=== PATIENT | female | born 1945 | race Caucasian/White ===

== ENCOUNTER 2017-02-05 00:41 | Emergency (ER) | payer BC ==
--- NOTE | 2017-02-05 00:45 | PDOC ---
History of Present Illness - General Chief Complaint: Irregular Heart Beat Stated Complaint: COUGH/MALAISE Time Seen by Provider: 02/05/17 00:43 - History of Present Illness Initial Comments: This 71-year-old woman with a history of GERD and hyperlipidemia presents with 3 week history of generally nonproductive cough. Patient states that she initially had an "ear infection" and sore throat followed by the cough. Her ear symptoms resolved but sore throat and cough continued. Patient was seen by her PMD, Dr. Díaz); because of her long history of GERD and normal lung exam , he suggested that she double her daily dose of Prilosec. When she did this., the sore throat resolved with cough continuing. Follow-up appointment with Dr. Díaz was yesterday. Her lungs were clear and patient was given prescription for Tessalon Perles. Tonight, she continues to have nonproductive cough and presents here. She has had no fever/chills/shortness of breath/ wheezing. No previous history of asthma or other chronic respiratory illness. 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 Formulary)] 1 tab PO DAILY 11/18/14 [place]-3 Fatty Acids/Fish Oil [Fish Oil 1,000 mg Softgel] 2,000 each PO WEEKLY Omeprazole Magnesium [Prilosec (OTC)] 20 mg PO DAILY 11/18/14 Ubidecarenone [Co Q-10] 200 mg PO DAILY 11/18/14 Benzonatate 100 mg PO TID 02/05/17 Pantoprazole Sodium [Protonix -] 40 mg PO DAILY #30 tablet.ec 02/05/17 Anemia: No Asthma: No Cancer: No Cardiac Disorders: No CVA: No COPD: No CHF: No Dementia: No Diabetes: No GI Disorders: Yes (GERD) Disorders: No HTN: No Hypercholesterolemia: Yes Liver Disease: No Seizures: No Thyroid Disease: No - Surgical History Abdominal Surgery: No Appendectomy: No Cardiac Surgery: No Cholecystectomy: No Lung Surgery: No Neurologic Surgery: No Orthopedic Surgery: No - Immunization History Td Vaccination: Yes Immunization Up to Date: Yes - Psycho/Social/Smoking Cessation Hx Suicidal Ideation: No Smoking Status: No Smoking History: Never smoked Have you smoked in the past 12 months: No Number of Cigarettes Smoked Daily: 0 Hx Alcohol Use: Yes (OCC) Drug/Substance Use Hx: No Substance Use Type: Alcohol Hx Substance Use Treatment: No Review of Systems - Review of Systems Able to Perform ROS?: Yes Comments:: 12 point review of systems is negative except for what is noted in the history of present illness *Physical Exam - Physical Exam Comments: GENERAL: Adult female, coughing frequently but in no acute distress; speaking in full HEAD: Normal with no signs of trauma. EYES: PERRLA, EOMI, sclera anicteric, conjunctiva clear. ENT: Ears normal, nares patent, oropharynx clear without exudates. Dry mucous membranes. NECK: Normal range of motion, supple without lymphadenopathy, JVD, or masses. LUNGS: Breath sounds equal, clear to auscultation bilaterally. No wheezes, and no crackles. HEART:Regular rate and rhythm, normal S1 and S2 without murmur, rub or gallop. ABDOMEN:.normal bowel sounds No guarding,tenderness or rebound.No masses No distention. EXTREMITIES: Normal range of motion, no edema. No clubbing or cyanosis. No erythema, or tenderness. NEUROLOGICAL: Cranial nerves II through XII grossly intact. Normal speech. No focal neurological deficits. MUSCULOSKELETAL: Back non-tender to palpation, no CVA tenderness SKIN: Warm, Dry, normal turgor, no rashes or lesions noted. Twelve-lead electrocardiogram is performed and shows normal sinus rhythm at 91 bpm; intervals, axis and waveforms are all normal. No evidence of acute ST or T -wave abnormalities present. ED Treatment Course - LABORATORY CBC & Chemistry Diagram: 02/05/17 00:50 02/05/17 00:50 Medical Decision Making - Medical Decision Making This 71-year-old woman with a history of GERD/HLD, presents with cough for the last 2-3 weeks. She has seen her PMD twice in the last few weeks, most recently yesterday. The Tessalon Perles that were prescribed yesterday has not helped her dry cough. On presentation, her heart rate is 115, per minute but she is afebrile and pulse oximetry is 100% on room air. Although she is coughing, she does not appear to be in respiratory distress. Exam reveals clear lung sounds with good air exchange. No other significant abnormalities found on exam. EKG shows no evidence of ischemia /infarct Because of her age and history of hyperlipidemia, cardiac enzymes as well as CBC /chemistry profile were evaluated. Patient also was given small amount ( approximately 75 mL/an hour of normal saline ) Because of the clear lung exam and 100% pulse oximetry on room air, pneumonia or other structural acute abnormality unlikely. Therefore, chest x-ray deferred. Cardiac enzymes are not elevated and remainder of the laboratory work is essentially normal. In light of patient's long history of GERD, is possible that her cough is related to persistent acid reflux despite taking 40 mg of Prilosec daily. Will change her PPI to Protonix 40 mg daily with first dose given here in the emergency room. The patient should follow up in any case with within the next 2-3 days. She should return to the emergency room immediately if she has any worsening of her cough or development of shortness of breath, wheezing or fever *DC/Admit/Observation/Transfer Diagnosis at time of Disposition: Cough GERD (gastroesophageal reflux disease) Qualifiers: Esophagitis presence: esophagitis presence not specified Qualified Code(s): K21.9 - Gastro-esophageal reflux disease without esophagitis - Discharge Dispostion Disposition: HOME Condition at time of disposition: Stable - Prescriptions Prescriptions: Pantoprazole Sodium [Protonix -] 40 mg PO DAILY #30 tablet.ec - Referrals Referrals: Luis Díaz MD [Primary Care Provider] - 3 days - Patient Instructions Printed Discharge Instructions: DI for Gastroesophageal Reflux Disease (GERD) Additional Instructions: Stop Prilosec Protonix 40 mg daily Continue all other medications as prescribed Drink plenty of water Return if you have severe cough or develop fever/shortness of breath Follow-up with Dr. Díaz within 2-3 days
[2017-02-05 00:55] VITALS: BP 167/98; PULSE 115; TEMP 98.4; BMI 25.7
[2017-02-05 01:14] LABS: BASOPHIL 1.3 % (0-2.0); EOSINOPHIL 2.2 % (0-4.5); MCH 30.5 pg (25.7-33.7); MCHC 34.3 g/dl (32.0-36.0); MEAN CELL VOLUME 89.1 fl (80-96); MEAN PLT VOLUME 8.6 fl (7.5-11.1); NEUTROPHILS 51.4 % (42.8-82.8); PLATELET COUNT 238 K/MM3 (134-434); RDW 13.1 % (11.6-15.6); WHITE BLOOD COUNT 8.9 K/mm3 (4.0-10.0)
[2017-02-05 01:42] LABS: TROPONIN I < 0.02 ng/ml (0.00-0.05)
[2017-02-05 01:58] LABS: ALBUMIN 3.9 g/dl (3.4-5.0); ANION GAP 10 (8-16); BILIRUBIN,TOTAL 0.3 mg/dL (0.2-1.0); CALCIUM 9.1 mg/dL (8.5-10.1); CO2 26 mmol/L (21-32); CREATININE 0.7 mg/dL (0.55-1.02); SGOT/AST 22 U/L (15-37); SGPT/ALT 43 U/L (12-78); TOT PROT 6.4 g/dl (6.4-8.2)
[2017-02-05 01:59] LABS: ALK PHOS 96 U/L (45-117)
[2017-02-05 02:00] LABS: GLUCOSE,RANDOM 126 mg/dL (74-106)
[2017-02-05] MEDS ORDERED: PANTOPRAZOLE 40 MG TABLET (FP) PO ONE (02:07)
[2017-02-05] MEDS ORDERED: PANTOPRAZOLE 40 MG TABLET (FP) ONE (02:09)
--- NOTE | 2017-02-06 08:35 | EKG ---
Test Reason : Blood Pressure : / mmHG Vent. Rate : 091 BPM Atrial Rate : 091 BPM P-R Int : 168 ms QRS Dur : 076 ms QT Int : 376 ms P-R-T Axes : 058 -01 048 degrees QTc Int : 462 ms SINUS RHYTHM POSSIBLE LEFT ATRIAL ENLARGEMENT NO PREVIOUS ECGS AVAILABLE Confirmed by SHARRON CHAVEZ MD ([id number]) on 02/06/2017 8:35:23 AM Referred By: MD REMY Confirmed By:SHARRON CHAVEZ MD
== END 2017-02-05 02:19 | disposition home or self-care (01) ==
LOC: FER 00:41
DX: R05 Cough (principal); K21.9 Gastro-esophageal reflux disease without esophagitis; E78.5 Hyperlipidemia, unspecified
CPT/HCPCS: 36415; 80053; 82550; 84484; 85025; 93005; 99282-25

== ENCOUNTER 2017-08-26 18:14 | Emergency (ER) | payer BC ==
--- NOTE | 2017-08-26 18:29 | PDOC ---
History of Present Illness - History of Present Illness Initial Comments: 08/26/17 18:47 The patient is a 71 year old female, with a significant past medical history of GERD, hyperlipidemia, and taking 81 mg Aspirin daily, who presents to the emergency department with nausea, lightheadedness, generalized weakness, and hypertension today. The patient states she had been sick with a virus about 3 weeks ago, was seen by her doctor and reportedly was negative for flu and strep. She states she flew to [place] for a week, was feeling generally improved until her sudden onset of nausea and lightheadedness today. She states her blood pressure is between 1205/75 and 140/80, however, reports her blood pressure today was 160/90, then 180/90 and 190/110 after lying down. She also reports a clogged sensation to her right ear. She reports her cough has persisted for the 3 weeks, but states her cough is dry. 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 She denies chest pain, shortness of breath, headache and dizziness. She denies fever, chills, vomit, diarrhea and constipation. She denies dysuria, frequency, urgency and hematuria. Allergies: NKDA <Namita Urbano - Last Filed: 08/26/17 18:47> <Celeste Diego - Last Filed: 08/27/17 08:21> - General Chief Complaint: Blood Pressure Problem Stated Complaint: HTN Time Seen by Provider: 08/26/17 18:29 Past History <Namita Urbano - Last Filed: 08/26/17 18:47> - Past Medical History Anemia: No Asthma: No Cancer: No Cardiac Disorders: No CVA: No COPD: No CHF: No Dementia: No Diabetes: No GI Disorders: Yes (GERD) Disorders: No HTN: No Hypercholesterolemia: Yes Liver Disease: No Seizures: No Thyroid Disease: No - Surgical History Abdominal Surgery: No Appendectomy: No Cardiac Surgery: No Cholecystectomy: No Lung Surgery: No Neurologic Surgery: No Orthopedic Surgery: No - Immunization History Td Vaccination: Yes Immunization Up to Date: Yes - Suicide/Smoking/Psychosocial Hx Smoking Status: No Smoking History: Never smoked Have you smoked in the past 12 months: No Number of Cigarettes Smoked Daily: 0 Hx Alcohol Use: Yes (OCC) Drug/Substance Use Hx: No Substance Use Type: Alcohol Hx Substance Use Treatment: No <Celeste Diego - Last Filed: 08/27/17 08:21> - Past Medical History Allergies/Adverse Reactions: Allergies Allergy/AdvReac Type Severity Reaction Status Date / Time No Known Drug Allergies Allergy Verified 08/26/17 18:15 Home Medications: Ambulatory Orders Atorvastatin Ca [Lipitor] 20 mg PO HS 11/18/14 Calcium Carbonate [Calcium] 600 mg PO DAILY 11/18/14 Cholecalciferol (Vitamin D3) [Vitamin D] 5,000 unit PO DAILY 11/18/14 Multivitamins [Multivit ([facility] Formulary)] 1 tab PO DAILY 11/18/14 [place]-3 Fatty Acids/Fish Oil [Fish Oil 1,000 mg Softgel] 2,000 each PO WEEKLY Ubidecarenone [Co Q-10] 200 mg PO DAILY 11/18/14 [place]-3 Fatty Acids/Fish Oil [Fish Oil 1,000 mg Capsule] 1 each PO DAILY Review of Systems - Review of Systems Able to Perform ROS?: Yes Comments:: 08/26/17 18:48 GENERAL/CONSTITUTIONAL: No fever or chills. No weakness. HEAD, EYES, EARS, NOSE AND THROAT: No change in vision. No ear pain or discharge. No sore throat. CARDIOVASCULAR: (+) hypertensive and lightheaded. No chest pain or shortness of breath. RESPIRATORY: (+) dry cough, No wheezing, or hemoptysis. GASTROINTESTINAL: (+) nausea, No vomiting, diarrhea or constipation. GENITOURINARY: No dysuria, frequency, or change in urination. MUSCULOSKELETAL: No joint or muscle swelling or pain. No neck or back pain. SKIN: No rash NEUROLOGIC: No headache, vertigo, loss of consciousness, or change in strength/ sensation. ENDOCRINE: No increased thirst. No abnormal weight change. HEMATOLOGIC/LYMPHATIC: No anemia, easy bleeding, or history of blood clots. ALLERGIC/IMMUNOLOGIC: No hives or skin allergy. <Namita Urbano - Last Filed: 08/26/17 18:47> *Physical Exam - Vital Signs Last Vital Signs Temp Pulse Resp BP Pulse Ox 98.5 F 78 20 168/89 78 L 08/26/17 18:15 08/26/17 18:15 08/26/17 18:15 08/26/17 18:15 08/26/17 18:15 - Physical Exam Comments: 08/26/17 18:49 GENERAL: Awake, alert, and fully oriented, in no acute distress HEAD: No signs of trauma EYES: PERRLA, EOMI, sclera anicteric, conjunctiva clear ENT: Auricles normal inspection, hearing grossly normal, nares patent, oropharynx clear without exudates. Moist mucosa NECK: Normal ROM, supple, no lymphadenopathy, JVD, or masses LUNGS: Breath sounds equal, clear to auscultation bilaterally. No wheezes, and no crackles HEART: Regular rate and rhythm, normal S1 and S2, no murmurs, rubs or gallops ABDOMEN: Soft, nontender, normoactive bowel sounds. No guarding, no rebound. No masses EXTREMITIES: Normal range of motion, no edema. No clubbing or cyanosis. No cords, erythema, or tenderness NEUROLOGICAL: Cranial nerves II through XII grossly intact. Normal speech, normal gait SKIN: Warm, Dry, normal turgor, no rashes or lesions noted. <Namita Urbano - Last Filed: 08/26/17 18:47> Heart Score/ECG Review - History History: Slightly suspicious - Electrocardiogram EKG: Normal - Age Age: >/= 65 - Risk Factors Risk Factors Heart Score: Yes Hx Hypercholesterolemia Based on the list above the patient has:: 1-2 risk factors - Troponin Troponin: </= normal limit - Score Heart Score - Total: 3 <Celeste Diego - Last Filed: 08/27/17 08:21> ED Treatment Course - LABORATORY CBC & Chemistry Diagram: 08/26/17 19:21 08/26/17 19:28 <Celeste Diego - Last Filed: 08/27/17 08:21> Medical Decision Making - Medical Decision Making 08/26/17 19:[address] Álvarez at 7pm shift change. She presented with atypical symptoms- nausea, feeling unwell. She checked her BP multiple times and it was elevated (typically her SBP is 120s-140s, but today it was in 160s, then increased with subsequent checks). In ED EKG is wnl. Awaiting labs. Heart score is 3. Stable for DC home if workup wnl. <Celeste Diego - Last Filed: 08/27/17 08:21> *DC/Admit/Observation/Transfer - Attestations Scribe Attestion: 08/26/17 18:50 Documentation prepared by Namita Urbano, acting as medical staff services coordinator for Celeste Diego MD, <Namita Urbano - Last Filed: 08/26/17 18:47> <Celeste Diego - Last Filed: 08/27/17 08:21> Diagnosis at time of Disposition: Essential hypertension - Discharge Dispostion Disposition: HOME - Patient Instructions Additional Instructions: Call your primary care DrHayder on Monday get an appointment to follow-up. Return to the emergency department immediately with ANY new, persistent or worsening symptoms. Continue any medications as previously prescribed by your physician. You should follow up with your primary doctor as soon as possible regarding today's emergency department visit. . Please make sure your doctor reviews the results of your emergency evaluation. Thank you for coming to the Emergency Department today for your care. It was a pleasure to see you today. Please note that your evaluation is INCOMPLETE until you follow-up with your doctor.
[2017-08-26 18:43] VITALS: BP 168/89; PULSE 78; TEMP 98.5; BMI 25.7
--- NOTE | 2017-08-26 19:24 | PDOC ---
*Physical Exam - Vital Signs Last Vital Signs Temp Pulse Resp BP Pulse Ox 98.5 F 78 20 168/89 78 L 08/26/17 18:15 08/26/17 18:15 08/26/17 18:15 08/26/17 18:15 08/26/17 18:15 ED Treatment Course - LABORATORY CBC & Chemistry Diagram: 08/26/17 19:21 08/26/17 19:28 Progress Note - Progress Note Progress Note: Care of this patient was transferred to me from Dr. Diego at 1900 hrs. Patient is a 71-year-old female who comes in complaining of hypertension and upper respiratory type symptoms. Patient denied any chest pain however she does have some cardiac risk factors and the heart score is 3. Patient has a EKG that is normal and cardiac enzymes are pending. Patient had a chest x-ray ordered as well which is also pending. Chest x-ray shows poor inspiration but no acute pathology. Patient's heart score is 3 with a negative troponin Assessment and plan: This is a 71-year-old female who comes in with complaint of hypertension. Patient does not have hypertension. Patient otherwise was seen initially by Dr. Baumann and signed out to me to follow-up on her workup. Patient denied any chest pain shortness of breath or cardiac complaints. However patient does have some risk factors but her heart score was 3 her troponin was negative her chest x-ray was normal and her R EKG showed no acute changes. Patient was reassured that she can follow-up with her primary care doctor regarding her elevated blood pressure and patient was discharged home. *DC/Admit/Observation/Transfer Diagnosis at time of Disposition: Essential hypertension - Discharge Dispostion Disposition: HOME Admit: No - Referrals - Patient Instructions Additional Instructions: Call your primary care DrHayder on Monday get an appointment to follow-up. Return to the emergency department immediately with ANY new, persistent or worsening symptoms. Continue any medications as previously prescribed by your physician. You should follow up with your primary doctor as soon as possible regarding today's emergency department visit. . Please make sure your doctor reviews the results of your emergency evaluation. Thank you for coming to the Emergency Department today for your care. It was a pleasure to see you today. Please note that your evaluation is INCOMPLETE until you follow-up with your doctor. - Post Discharge Activity
[2017-08-26 19:37] LABS: URINE APPEARANCE Clear; URINE BILIRUBIN Negative (NEGATIVE); URINE BLOOD Negative (NEGATIVE); URINE GLUCOSE (UA) Negative (NEGATIVE); URINE KETONE Negative (NEGATIVE); URINE NITRITE Negative (NEGATIVE); URINE PROTEIN Negative (NEGATIVE); URINE UROBILINOGEN 0.2 (0.2-1.0)
[2017-08-26 19:38] LABS: URINE COLOR YELLOW
[2017-08-26 19:38] LABS: BASO % 0.5 % (0-2.0); HEMATOCRIT 45.1 % (32.4-45.2); HEMOGLOBIN 14.7 GM/dl (10.7-15.3); LYMPH % 28.2 % (8-40); MCH 29.6 pg (25.7-33.7); MCHC 32.7 g/dl (32.0-36.0); MEAN CELL VOLUME 90.7 fl (80-96); MEAN PLT VOLUME 9.3 fl (7.5-11.1); MONO % 5.8 % (3.8-10.2); NEUT % 63.5 % (42.8-82.8); PLATELET COUNT 237 K/MM3 (134-434); RBC 4.98 M/mm3 (3.60-5.2); RDW 11.9 % (11.6-15.6); WHITE BLOOD COUNT 6.5 K/mm3 (4.0-10.8)
[2017-08-26 19:42] LABS: INR 1.07 (0.82-1.09)
[2017-08-26 19:48] LABS: AMORP URATES FEW /hpf (NONE SEEN); EPI CELLS FEW /HPF; URINE BACTERIA FEW /hpf (NEGATIVE)
[2017-08-26 20:00] LABS: ALBUMIN 4.3 g/dl (3.5-5.0); ALK PHOS 69 U/L (32-92); ANION GAP 8 (8-16); BILIRUBIN,TOTAL 0.7 mg/dl (0.2-1.0); BLOOD UREA NITROGEN 19 mg/dl (7-18); CALCIUM 9.8 mg/dl (8.4-10.2); CHLORIDE 106 mmol/L (98-107); CO2 24 mmol/L (22-28); CREATININE 0.6 mg/dl (0.6-1.3); GLUCOSE,RANDOM 95 mg/dl (74-106); POTASSIUM 3.6 mmol/L (3.5-5.1); SGOT/AST 19 U/L (10-42); SGPT/ALT 26 U/L (10-40); SODIUM 138 mmol/L (136-145); TOT PROT 6.5 g/dl (6.4-8.3)
[2017-08-26 20:14] LABS: TROPONIN I (DFP) < 0.03 ng/ml (0.03-0.50)
--- NOTE | 2017-08-28 10:46 | EKG ---
Test Reason : Blood Pressure : / mmHG Vent. Rate : 069 BPM Atrial Rate : 069 BPM P-R Int : 158 ms QRS Dur : 090 ms QT Int : 418 ms P-R-T Axes : 019 -04 036 degrees QTc Int : 447 ms NORMAL SINUS RHYTHM WHEN COMPARED WITH ECG OF 05-FEB-2017 01:15, NO SIGNIFICANT CHANGE WAS FOUND Confirmed by MD GARDNER MARJORY ([id number]) on 08/28/2017 10:46:29 AM Referred By: QAMAR SPARROW Confirmed By:LILIAN GARDNER MD
== END 2017-08-26 20:34 | disposition home or self-care (01) ==
LOC: FER 18:14
DX: I10 Essential (primary) hypertension (principal); K21.9 Gastro-esophageal reflux disease without esophagitis; E78.00 Pure hypercholesterolemia, unspecified
CPT/HCPCS: 36415; 71045-TC; 80053; 81003; 81015; 82550; 84484; 85025; 85610; 93005; 99282-25